=== PATIENT | male | born 1985 | race African-American/Black ===

== ENCOUNTER 2017-04-24 20:12 | Emergency (ER) | payer MEDICARE, OTHER ==
[~2017-04-24] VITALS: Ht 177.8 cm; Wt 65.8 kg
[2017-04-24] MEDS ORDERED: PROMETHAZINE-C118 M1 ORAL (20:42)
[2017-04-24] MEDS ORDERED: ALBUTEROL SULF8.5 GM INH (20:42)
[2017-04-24 20:49] VITALS: BP 125/70
[2017-04-24 20:50] VITALS: BP 122/67
--- NOTE | 2017-04-25 14:58 | Emergency Room Report ---
History of Present Illness General Chief Complaint: Flu Like Symptoms Source: Patient Present Illness HPI 31-year-old male presents ED for evaluation. Complaining of cough x4 days. Cough is productive of yellowish phlegm. Denies fevers or chills. Denies shortness of breath. Denies sore throat or earache. admits to smoking. no other aggravting or relieving factors. denies any other associated symptoms Allergies: Coded Allergies: No Known Allergies (Unverified , 04/24/17) Patient History Past Medical History: none Past Surgical History: none Pertinent Family History: none Social History: Denies: smoking, alcohol use, drug use Immunizations: UTD Reviewed Nursing Documentation: PMH: Agreed, PSxH: Agreed Nursing Documentation-PMH Past Medical History: No Stated History Review of Systems All Other Systems: negative except mentioned in HPI Physical Exam Vital Signs Date Time Temp Pulse Resp B/P (MAP) Pulse Ox O2 Delivery O2 Flow Rate FiO2 04/24/17 20:17 98.5 62 18 122/67 98 Room Air 98.4 Sp02 EP Interpretation: reviewed, normal General Appearance: no apparent distress, alert, GCS 15, non-toxic Head: normocephalic, atraumatic Eyes: bilateral eye normal inspection, bilateral eye PERRL ENT: hearing grossly normal, normal pharynx, no angioedema, normal voice Neck: full range of motion, supple/symm/no masses Respiratory: chest non-tender, lungs clear, normal breath sounds, speaking full sentences Cardiovascular #1: regular rate, rhythm, no edema Cardiovascular #2: 2+ carotid (R), 2+ carotid (L), 2+ radial (R), 2+ radial (L) , 2+ dorsalis pedis (R), 2+ dorsalis pedis (L) Gastrointestinal: normal bowel sounds, non tender, soft, non-distended, no guarding, no rebound Rectal: deferred Genitourinary: normal inspection, no CVA tenderness Musculoskeletal: back normal, gait/station normal, normal range of motion, non- tender Neurologic: alert, oriented x3, responsive, motor strength/tone normal, sensory intact, speech normal Psychiatric: judgement/insight normal, memory normal, mood/affect normal, no suicidal/homicidal ideation Reflexes: 3+ bicep (R), 3+ bicep (L), 3+ tricep (R), 3+ tricep (L), 3+ knee (R) , 3+ knee (L) Skin: normal color, no rash, warm/dry, well hydrated Lymphatic: no adenopathy Medical Decision Making Diagnostic Impression: Primary Impression: Bronchitis ER Course Hospital Course 31-year-old male presents to ED complaining of cough, congestion Differential diagnoses include: URI, pharyngitis, otitis media, asthma Clinical course Patient placed on stretcher. After initial history, physical exam reveals a young male in no acute distress. Bilateral TM unremarkable. No pharyngeal erythema. No tonsillar exudates. No lymphadenopathy. lungs clear. abdomen soft. Clinical findings consistent with bronchitis. Reassurance given. treatment is supportive therapy Diagnosis - bronchitis Stable and discharged home with Rx Albuterol, promethazine/codeine. Instructed to followup with PMD. Return to ED if symptoms recur or worsen Last Vital Signs Date Time Temp Pulse Resp B/P (MAP) Pulse Ox O2 Delivery O2 Flow Rate FiO2 04/24/17 20:50 98.5 18 122/67 98 Room Air 98.4 04/24/17 20:49 68 Status: improved Disposition: HOME, SELF-CARE Condition: Stable Scripts Albuterol Sulfate* (ALBUTEROL SULFATE MDI*) 8.5 Gm Hfa.aer.ad 2 PUFF INH Q6H, #1 EA 0 Refills Prov: MORAIMA HERCULES M.D. 04/24/17 Codeine/Promethazine Hcl* (PROMETHAZINE-CODEINE SYRUP*) 118 Ml Syrup 5 ML ORAL Q6H Y for For Cough, #118 ML 0 Refills Prov: MORAIMA HERCULES M.D. 04/24/17 Referrals: NOT CHOSEN BEN/,REFERRING Patient Instructions: Acute Bronchitis, [id number] MORAIMA HERCULES M.D. Apr 25, 2017 14:58
== END 2017-04-24 20:50 | disposition home or self-care (01) ==
LOC: EMR 20:37
DX: J40 Bronchitis, not specified as acute or chronic (principal)
CPT/HCPCS: 99283